=== PATIENT | female | born 1975 | race African-American/Black ===

== ENCOUNTER 2017-01-03 12:31 | Emergency (ER) | payer MEDICAID, OTHER ==
[~2017-01-03] VITALS: Ht 170.2 cm; Wt 98.3 kg
[~2017-01-03 12:31] MED LIST: DIVAL250 PO; TRAM50TA73 PO
[2017-01-03] MEDS ORDERED: ONDANSETRON HCL 4MG/2ML VIAL IV STA (13:49)
[2017-01-03] MEDS ORDERED: SODIUM CHLORIDE 0.9% 1,000 ML IV ONE (13:49)
[2017-01-03] MEDS ORDERED: KETOROLAC 30MG/ML VIAL IV STA (13:49)
[2017-01-03] MEDS ORDERED: MORPHINE SULFATE 4 MG/ML CPJ (NOT FOR IM USE) IV STA (13:49)
[2017-01-03] MEDS ORDERED: KETOROLAC 30MG/ML VIAL IV ONE (14:00)
[2017-01-03 14:58] LABS: *AMPHETAMINES SCREEN URINE NEGATIVE (NEGATIVE); *BARBITURATES SCREEN URINE NEGATIVE (NEGATIVE); *BENZODIAZEPINES SCREEN URINE NEGATIVE (NEGATIVE); *COCAINE SCREEN URINE NEGATIVE (NEGATIVE); ECSTASY MDMA SCREEN URINE NEGATIVE (NEGATIVE); METHADONE URINE SCREEN NEGATIVE (NEGATIVE); OPIATES URINE SCREEN NEGATIVE (NEGATIVE); PHENCYCLIDINE URINE SCREEN NEGATIVE (NEGATIVE)
[2017-01-03 14:59] LABS: CANNABINOID URINE SCREEN PRESUMTIVE POSITIVE (NEGATIVE)
[2017-01-03 15:23] VITALS: BP 108/61
== END 2017-01-03 16:22 | disposition home or self-care (01) ==
LOC: ER 14:09
DX: G43.909 Migraine, unspecified, not intractable, without status migrainosus (principal); R11.0 Nausea; Z86.011 Personal history of benign neoplasm of the brain
CPT/HCPCS: 80305; 81025; 96361; 96374; 96375; 99284; J1885; J2270; J2405; J7030; Z7610

== ENCOUNTER 2019-03-05 01:42 | Emergency (ER) | payer OTHER ==
[~2019-03-05] VITALS: Ht 170.2 cm; Wt 127.0 kg
[~2019-03-05 01:42] MED LIST changes: -TRAM50TA73 PO; +TRAM50TA94 PO
[2019-03-05] MEDS ORDERED: KETOROLAC 60MG/2ML VIAL IM STA (03:12)
[2019-03-05] MEDS ORDERED: METOCLOPRAMIDE HCL 10MG/2ML VIAL IM ONE (03:15)
[2019-03-05] MEDS ORDERED: NAPROXEN 250MG TABLET PO ONE (07:00)
[2019-03-05] MEDS ORDERED: DEXAMETHASONE 10 MG/ML VIAL IM ONE (07:00)
[2019-03-05 08:27] VITALS: BP 124/81
== END 2019-03-05 08:32 | disposition home or self-care (01) ==
LOC: ER 01:42
DX: G43.909 Migraine, unspecified, not intractable, without status migrainosus (principal); M54.41 Lumbago with sciatica, right side; F12.10 Cannabis abuse, uncomplicated; Z98.890 Other specified postprocedural states
CPT/HCPCS: 81025; 96372; 99283; J1100; J1885; J2765

== ENCOUNTER 2020-06-03 18:08 | Emergency (ER) | payer OTHER ==
[~2020-06-03] VITALS: Ht 167.6 cm; Wt 107.0 kg
[2020-06-03 18:14] VITALS: BP 120/90
[2020-06-03] MEDS ORDERED: ACETAMINOPHEN 500MG TABLET PO SCH (18:45)
[2020-06-03] MEDS ORDERED: LIDOCAINE HCL 1% 20ML VIAL (Pyxis) INJ INFIL SCH (18:45)
== END 2020-06-03 19:40 | disposition home or self-care (01) ==
LOC: ER 18:08
DX: S61.101A Unspecified open wound of right thumb with damage to nail, initial encounter (principal); W22.09XA Striking against other stationary object, initial encounter; Y93.89 Activity, other specified; Y92.018 Other place in single-family (private) house as the place of occurrence of the external cause
CPT/HCPCS: 99282; J3490